=== PATIENT | female | born 1950 | race Caucasian/White ===

== ENCOUNTER → 2016-09-20 | Day surgery (SDC) | payer OTHER ==
[~2016-09-20] MED LIST: ACETAMINOPHEN/HYDROcodone 325 MG/5 MG TAB ONE; ALBU8I INH; BUPIVACAINE/EPINEPHRINE 0.5% 50 ML VIAL ONE; GLUCTAB OR; LACTATED RINGER'S 1000 ML INJ 1,000 ML ONE; LANTUSP SQ; MEPERIDINE HCL 25 MG/ML VIAL ONE; MIDAZOLAM HCL 2 MG/2 ML VIAL ONE; OMEP20TA OR; ONDANSETRON HCL 4 MG/2 ML VIAL IV PUSH ONE; PROPOFOL 200 MG/20 ML AMP IV ONE; SIMV5TAB32 PO; SYMB80AE INH; ceFAZolin INJ 1,000 MG VIAL ONE
--- NOTE | 2016-09-20 21:53 | TN ---
cc: NITO DONIS M.D. DATE OF SURGERY 09/20/2016 PREOPERATIVE DIAGNOSES 1. Internal derangement of the left knee. 2. Probable medial meniscus tear left knee. POSTOPERATIVE DIAGNOSES 1. Complex tear of the medial meniscus. 2. Osteoarthritis left knee. PROCEDURE 1. Arthroscopy left knee. 2. Arthroscopic medial meniscectomy. 3. Abrasion chondroplasty. SURGEON Nito Donis MD ANESTHESIA General. ESTIMATED BLOOD LOSS Minimal. INDICATION This is a 66-year-old female with significant left knee pain especially along the medial joint line. Investigative studies show evidence of torn medial meniscus. Despite conservative care the patient continued to be painful and symptomatic. She presents for surgical treatment. PROCEDURE The patient was brought to the operating knee, anesthetized in supine position. The left leg was scrubbed with alcohol, followed by Hibiclens, followed Chloraprep and draped sterilely. Antibiotics were given within a one-hour time limit. Time-out was done. Inflow was established anterior laterally. The knee was inflated. The suprapatellar pouch showed moderate to advanced grade 2-3 change of the retropatellar region. The medial compartment showed evidence of grade 2 changes and a complex tear of the medial meniscus at approximately the 10 o'clock position extending before the posterior horn. The ACL was normal. The lateral compartment was essentially normal. A spinal needle was introduced along the medial joint line. Straight and angled punches were used to take the meniscus back from the 9 o'clock position to the posterior horn. Meniscal debrider was used to debride loose articular cartilage, especially along the tibia in the region of the meniscal tear. The wound was irrigated copiously. Hemostasis was controlled. The portals were injected with 0.5% Marcaine with epinephrine. The wounds were anesthetized. They were close with Steri-Strips and Benzoin. Sterile dressing was applied. The patient was awakened and taken to the recovery room in satisfactory condition. MD RACHANA Donovan/STACIE /5:22 PM /9:48 PM
== END | disposition home or self-care (01) ==
LOC: ESDC 14:44
PROVIDERS: ATTEND Orthopaedic Surgery Orthopaedic Surgery of the Spine
DX: S83.232A Complex tear of medial meniscus, current injury, left knee, initial encounter (principal); M17.12 Unilateral primary osteoarthritis, left knee
CPT/HCPCS: J0690; J2175; J2250; J2405; J3010; J7120